=== PATIENT | female | born 1960 | race Caucasian/White ===

== ENCOUNTER 2016-11-15 10:51 | Outpatient (CLI) | payer MEDICARE, BC ==
[2016-11-15 11:59] LABS: #Basophils 0.1 thou/uL (0.0-0.2); #Eosinphils 0.3 thou/uL (0.0-0.7); #Lymphocytes 2.2 thou/uL (1.20-3.40); #Monocytes 0.7 thou/uL (0.11-0.59); #Neutrophils 7.2 thou/uL (1.40-6.50); %Basophils 1.1 % (0.0-1.0); %Eosinophils 2.8 % (0.0-10.0); %Monocytes 6.8 % (0.0-10.0); %Neutrophils 68.3 % (42.0-75.0); Hemoglobin 15.5 g/dL (12.0-16.0); Mean Corpuscular HGB CONC 33.6 g/dL (32.0-36.0); Mean Corpuscular Hemoglobin 31.8 pg (27.0-31.0); Mean Corpuscular Volume 94.7 fl (81.0-99.0); Mean Platelet Volume 5.8 fL (7.4-10.4); Platelet Count 263 thou/uL (130-400); RBC Distribution Width 13.8 % (11.5-14.5); Red Blood Cell (RBC) Count 4.86 mill/uL (4.20-5.40); White Blood Cell (WBC) Count 10.5 thou/uL (4.8-10.8)
[2016-11-15 12:11] LABS: ALT (SGPT) 52 U/L (0-55); AST (SGOT) 27 U/L (5-34); Albumin 4.5 g/dL (3.5-5.0); Alkaline Phosphatase 64 U/L (40-150); Anion Gap 16 mmol/L (10-20); BUN (Urea Nitrogen) 9 mg/dL (9.8-20.1); Bilirubin, Total 0.4 mg/dL (0.2-1.2); Calc. Creatinine Clearance 0 mL/min (70-130); Calcium 9.7 mg/dL (7.8-10.44); Carbon Dioxide 26 mmol/L (22-29); Cardiac Risk 4.6 (Less than 4.5); Chloride 104 mmol/L (98-107); Cholesterol 173 mg/dL (< 200 Desired); Estimated GFR-MDRD 88; Globulin 2.6 g/dL (2.4-3.5); Glucose 113 mg/dL (70-105); HDL Cholesterol 38 mg/dL (>60 Neg Risk); LDL Cholesterol, Calculated 94 mg/dL; Potassium 4.3 mmol/L (3.5-5.1); Protein, Total 7.1 g/dL (6.0-8.3); Sodium 142 mmol/L (136-145); Triglycerides 203 mg/dL (Less than 150)
[2016-11-15 17:53] LABS: Creatinine, Urine 89.31 mg/dL (47-110); Microalbumin Urine Less than 1.0 mg/dL (0.5-50.0); Microalbumin/Creat Ratio 11.2 mg/g (Less than 30)
== END 2016-11-15 10:52 | disposition home or self-care (01) ==
LOC: HPCALD 10:51
PROVIDERS: ATTEND Family Medicine
DX: E78.5 Hyperlipidemia, unspecified (principal); I10 Essential (primary) hypertension; E11.9 Type 2 diabetes mellitus without complications; E03.9 Hypothyroidism, unspecified
CPT/HCPCS: 36415; 80053; 80061; 82043; 84443; 85025

== ENCOUNTER 2017-02-28 10:38 | Outpatient (CLI) | payer MEDICARE, BC ==
[2017-02-28 12:22] LABS: MONO NEGATIVE CONTROL ZONE White (Negative) (White); MONO POSITIVE CONTROL Pink Line (Positive) (PINK/RED); Mononucleosis NEGATIVE (NEGATIVE)
== END 2017-02-28 10:39 | disposition home or self-care (01) ==
LOC: HPCALD 10:38
PROVIDERS: ATTEND Family Medicine
DX: Z20.828 Contact with and (suspected) exposure to other viral communicable diseases (principal)
CPT/HCPCS: 36415; 86308

== ENCOUNTER 2017-04-30 11:26 | Outpatient (CLI) | payer MEDICARE, BC ==
[2017-04-30 11:56] LABS: #Basophils 0.1 thou/uL (0.0-0.2); #Eosinphils 0.2 thou/uL (0.0-0.7); #Lymphocytes 2.1 thou/uL (1.20-3.40); #Monocytes 0.5 thou/uL (0.11-0.59); #Neutrophils 7.2 thou/uL (1.40-6.50); %Basophils 1.3 % (0.0-1.0); %Lymphocytes 20.9 % (21.0-51.0); %Monocytes 5.2 % (0.0-10.0); %Neutrophils 70.6 % (42.0-75.0); Hemoglobin 15.6 g/dL (12.0-16.0); Mean Corpuscular HGB CONC 32.2 g/dL (32.0-36.0); Mean Corpuscular Hemoglobin 30.7 pg (27.0-31.0); Mean Corpuscular Volume 95.3 fl (81.0-99.0); Mean Platelet Volume 5.5 fL (7.4-10.4); Platelet Count 292 thou/uL (130-400); RBC Distribution Width 13.2 % (11.5-14.5); Red Blood Cell (RBC) Count 5.09 mill/uL (4.20-5.40); White Blood Cell (WBC) Count 10.2 thou/uL (4.8-10.8)
== END 2017-04-30 11:27 | disposition home or self-care (01) ==
LOC: HPCALD 11:26
PROVIDERS: ATTEND Family Medicine
DX: K92.1 Melena (principal)
CPT/HCPCS: 36415; 85025

== ENCOUNTER 2017-11-20 07:48 | Outpatient (CLI) | payer MEDICARE, BC ==
--- NOTE | 2017-11-20 21:33 | CT ---
CT ABDOMEN AND PELVIS WITH CONTRAST: 11/20/17 Spiral ACT of the abdomen and pelvis was performed for evaluation of right upper quadrant pain. Freddy rison is made with a prior CT dated 06/26/16. Both oral and IV contrast were used. Axial slices were a cquired, then coronal and sagittal reconstructions were clone. The lung bases are clear. There is diffuse fatty infiltrate of the liver, but the organ is not really enlarged. No space occupying disease was seen in the liver, spleen, or pancreas. No stones were seen in the gallbladder. The adrenal glands appear normal. The right kidney appears normal. There is a 2. 5 cm cyst in the upper pole of the left kidney not a new finding. The kidney otherwise appears normal . The aorta shows no aneurysm. There is mild arteriosclerotic change near the bifurcation. The bowel is nondistended. There are no inflammatory changes around bowel. No free air or free fluid was seen. CT of the pelvis shows no pelvic masses, fluid collections, or inflammatory changes. There does appea r to be a fat filled right inguinal hernia which is probably of no consequence. IMPRESSION: Fatty infiltration of the liver. Appearance of the abdomen and pelvis seems little different than the 2016 scan. POS: HOME
== END 2017-11-20 07:49 | disposition home or self-care (01) ==
LOC: BURCT 07:48
PROVIDERS: ATTEND Family Medicine
DX: R10.11 Right upper quadrant pain (principal); K76.0 Fatty (change of) liver, not elsewhere classified
CPT/HCPCS: 74177

== ENCOUNTER 2018-02-21 17:31 | Inpatient (IN) | payer MEDICARE, BC ==
[2018-02-21] MEDS ORDERED: Magnesium Sulfate 2 GM/100 ML BAG ONE (17:43)
[2018-02-21] MEDS ORDERED: methylPREDNISolone Sod Succ/PF 125 MG/2 ML VIAL ONE (17:43)
[2018-02-21 17:56] LABS: #Lymphocytes 1.7 thou/uL (1.20-3.40); #Monocytes 0.4 thou/uL (0.11-0.59); #Neutrophils 9.2 thou/uL (1.40-6.50); %Basophils 0.4 % (0.0-1.0); %Eosinophils 0.2 % (0.0-10.0); %Lymphocytes 14.6 % (21.0-51.0); %Monocytes 3.4 % (0.0-10.0); %Neutrophils 81.5 % (42.0-75.0); Hemoglobin 14.6 g/dL (12.0-16.0); Mean Corpuscular HGB CONC 33.4 g/dL (32.0-36.0); Mean Corpuscular Hemoglobin 28.8 pg (27.0-31.0); Mean Corpuscular Volume 86.1 fL (78.0-98.0); Mean Platelet Volume 5.4 fL (7.4-10.4); Platelet Count 300 thou/uL (130-400); RBC Distribution Width 13.2 % (11.5-14.5); Red Blood Cell (RBC) Count 5.08 mill/uL (4.20-5.40); White Blood Cell (WBC) Count 11.2 thou/uL (4.8-10.8)
[2018-02-21] MEDS ORDERED: Albuterol Sulfate 1.25 MG/3 ML NEB ONE (18:13)
[2018-02-21] MEDS ORDERED: cefTRIAXone\\ROCEPHIN 2 GM VIAL ONE (18:13)
[2018-02-21 18:16] LABS: ALT (SGPT) 34 U/L (8-55); AST (SGOT) 14 U/L (5-34); Albumin 4.5 g/dL (3.5-5.0); Alkaline Phosphatase 58 U/L (40-150); Anion Gap 20 mmol/L (10-20); BUN (Urea Nitrogen) 22 mg/dL (9.8-20.1); Bilirubin, Total 0.3 mg/dL (0.2-1.2); Calc. Creatinine Clearance 0 mL/min (70-130); Calcium 10.2 mg/dL (7.8-10.44); Carbon Dioxide 27 mmol/L (22-29); Chloride 102 mmol/L (98-107); Estimated GFR-MDRD 64; Globulin 3.1 g/dL (2.4-3.5); Glucose 267 mg/dL (70-105); Potassium 4.5 mmol/L (3.5-5.1); Protein, Total 7.6 g/dL (6.0-8.3); Sodium 144 mmol/L (136-145)
[2018-02-21 18:18] LABS: CKMB 1.6 ng/mL (0-6.6); Troponin I Less than 0.010 ng/mL (< 0.028)
--- NOTE | 2018-02-21 18:32 | RAD ---
PORTABLE CHEST: 02/21/18 HISTORY: Dyspnea. Lungs are clear. Heart and mediastinum unremarkable. Vascular markings normal. IMPRESSION: No acute process. POS: [facility]
[2018-02-21 19:52] VITALS: BMI 36.9
[2018-02-21] MEDS ORDERED: Ondansetron HCl/PF 4 MG/2 ML Vial SLOW IVP PRN (20:31)
[2018-02-21] MEDS ORDERED: HYDROcodone/Acetaminophen 5/325 mg Tablet PO PRN (20:31)
[2018-02-21] MEDS ORDERED: Ondansetron ODT 4 MG TAB PO PRN (20:31)
[2018-02-21] MEDS ORDERED: Acetaminophen 325 MG TAB PO PRN (20:31)
[2018-02-21] MEDS ORDERED: ALPRAZolam 0.5 MG TAB PO PRN (21:46)
[2018-02-21] MEDS: methylPREDNISolone Sod Succ/PF 125 MG/2 ML VIAL IVP SCH (23:26)
[2018-02-21] MEDS: Sodium Chloride 0.9% 1,000 ML IV SCH (23:42)
[2018-02-22] MEDS ORDERED: metFORMIN XR 500 MG TAB PO SCH ×2 (01:45→17:00)
[2018-02-22] MEDS ORDERED: Bisoprolol Fumarate 5 MG TAB PO SCH (09:00)
[2018-02-22] MEDS ORDERED: MAGNESIUM 250 MG PO SCH (09:00)
[2018-02-22] MEDS ORDERED: Spiriva 18 MCG CAP (Box of 5 Caps) INH SCH (09:00)
[2018-02-22] MEDS: Fluticasone Propionate Nasal Spray 16 gm Bottle NASAL SCH (09:19)
[2018-02-22] MEDS: Pioglitazone HCl 15 MG TAB PO SCH (09:26)
[2018-02-22] MEDS: guaiFENesin ER 600 MG TAB PO SCH ×2 (09:26→21:07)
[2018-02-22] MEDS: Clopidogrel Bisulfate 75 MG TAB PO SCH (09:28)
[2018-02-22] MEDS: Multivit, Therapeutic 1 TAB PO SCH (09:28)
[2018-02-22] MEDS: Potassium Chloride 10 MEQ TAB PO SCH (09:30)
[2018-02-22] MEDS: Furosemide 40 MG TAB PO SCH (09:30)
[2018-02-22] MEDS: LEVOMILNACIPRAN HCL 40 MG PO SCH (09:39)
[2018-02-22] MEDS: methylPREDNISolone Sod Succ/PF 125 MG/2 ML VIAL IVP SCH ×3 (09:43→21:03)
[2018-02-22] MEDS: Mometasone/Formoterol 60 PUFF AER INH SCH ×2 (09:56→21:04)
[2018-02-22] MEDS ORDERED: Dextrose 50% Abboject 50 ML SYRINGE SLOW IVP PRN (10:12)
[2018-02-22] MEDS ORDERED: Dextrose 5% in Water 1,000 ML IV PRN (10:12)
[2018-02-22] MEDS: HumaLOG 300 UNITS/3 ML VIAL SC PRN ×3 (13:32→21:12)
[2018-02-22] MEDS: Benzonatate 100 MG CAP PO PRN (15:00)
[2018-02-22] MEDS: Sodium Chloride 0.9% 1,000 ML IV SCH (16:56)
[2018-02-22] MEDS ORDERED: Albuterol Sulfate 2.5 mg/3 ml Neb NEB PRN (20:47)
[2018-02-22] MEDS: Atorvastatin Calcium 40 MG TAB PO SCH (21:07)
[2018-02-22] MEDS: MAGNESIUM OXIDE 250 MG PO SCH (21:09)
--- NOTE | 2018-02-23 01:01 | HP ---
CHIEF COMPLAINT: Shortness of breath. HISTORY OF PRESENT ILLNESS: Ms. Ma is a 58-year-old female with a past medical histor y of COPD, tobacco abuse, and obstructive sleep apnea, who presented to the emergency room for worsen ing wheezing, shortness of breath and cough. The patient was seen in the ambulatory setting by sc, h er PCP on 02/18/2018 and complained of approximately 4 days of cough productive of green sputum, sore throat, head congestion, tightness in the throat and shortness of breath. She reported compliance w ith her CPAP therapy. She was diagnosed with a COPD exacerbation and was placed on cefdinir 300 mg b .i.d. for 7 days as well as a prednisone a 2-week taper. She was instructed to continue her CPAP wit h oxygen support at night and given precautions. The patient thought her symptoms worsening and thus presented to the emergency room yesterday evening. She has been admitted for further treatment of h er COPD exacerbation. PAST MEDICAL HISTORY: 1. Chronic pain, neck and low back. 2. Coronary artery disease, status post stent to the LAD followed by Dr. Wilson. 3. Diastolic dysfunction with trivial mitral regurgitation and LVEF of 70% per 2011 echocardiogram. 4. Carotid stenosis. 5. A 2.7-cm simple cyst left kidney. 6. Pulmonary nodule. 7. Obstructive sleep apnea/central sleep apnea (likely from medication) currently on BiPAP at night followed by Pulmonology. 8. Vitamin D deficiency. 9. Hypertension. 10. Hyperlipidemia. 11. Hypothyroidism. 12. Cardiomegaly. 13. Tobacco abuse. 14. Type 2 diabetes. 15. COPD. 16. Depression and anxiety. PAST SURGICAL HISTORY: 1. Cervical spine surgery. 2. Herniated disk surgery, uncertain level. 3. Hysterectomy. 4. Cardiac catheterization x2, status post stent to the LAD. 5. Cataract surgery bilaterally. 6. Patient received multiple epidural steroid injections to the neck and back. 7. Colonoscopy in 06/2016. FAMILY HISTORY: Father is from heart disease. Her mother is from a congenital hea rt disease. SOCIAL HISTORY: Patient currently smokes approximately half a pack per day or less. She denies alco hol or illicit drug use. MEDICATIONS: 1. Nasacort 1 puff in each nostril daily. 2. Fetzima 40 mg p.o. daily. 3. Mucinex 600 mg ER one p.o. q.12 hours. 4. Aspirin 81 mg p.o. daily. 5. Melatonin 10 mg p.o. at bedtime. 6. B-complex vitamin 1 p.o. daily. 7. Magnesium 400 mg p.o. daily. 8. Vitamin D3 5000 units p.o. daily. 9. Symbicort 160/4.5 two puffs b.i.d. 10. DuoNeb q.i.d. p.r.n. 11. Proventil HFA 2 puffs q.4 hours p.r.n. for wheezing. 12. Cyclobenzaprine 10 mg p.o. t.i.d. p.r.n. 13. Trulicity 1.5/0.5 mL subcu once a week. 14. Metformin ER 500 mg 1 p.o. daily. 15. Bisoprolol fumarate 10 mg half p.o. daily. 16. Farxiga 5 mg 1 p.o. daily. 17. Pioglitazone 15 mg 1 p.o. daily. 18. Atacand 32 mg 1 p.o. daily. 19. Lipitor 40 mg one p.o. daily. 20. Potassium chloride ER 10 mEq p.o. daily. 21. Spiriva 18 mcg 1 p.o. q.a.m. 22. Omeprazole 40 mg one p.o. daily. 23. Alprazolam 0.5 mg half once daily as needed for anxiety. 24. Plavix 75 mg p.o. daily. 25. Stadol nasal 10 mg per mL 1 spray each nostril every 3-4 hours as needed for headache, alternati ng nostrils. 26. Furosemide 40 mg p.o. daily. ALLERGIES: Midodrine, Imitrex, and high doses of metformin causes diarrhea and stomach cramps. The patient has received her Pneumovax in 04/2014, her PCV 13 in 02/2015 and is up-to-date on her flu vaccine through the past season. REVIEW OF SYSTEMS: General: The patient denies fever, chills. Positive fatigue and malaise. HEENT : Positive sore throat. No vision changes. Positive nasal congestion. No rhinorrhea. No ear pain . Cardiovascular: Denies chest pain, palpitations, orthopnea, PND. Respiratory: Positive cough, w heezing, sputum production, shortness of breath. Denies hemoptysis. Gastrointestinal: The patient denies nausea, vomiting, diarrhea, constipation, melena, hematochezia, abdominal pain. Genitourinary : The patient denies dysuria, frequency, urgency, gross hematuria. Lymphatic: The patient with int ermittent lower extremity edema, but not above her baseline. Hematologic: The patient has had easy bruising since she takes both aspirin and Plavix after her recent stent. Psychiatric: Patient with significant anxiety and depression is well treated. PHYSICAL EXAMINATION: VITAL SIGNS: Temperature 97.9, pulse 100, respirations 22, O2 sat 92% on room air, blood pressure 17 1/80. GENERAL: A well-developed, obese female, in no acute distress, sitting on the side of the bed, speaking in complete sentences. HEENT: Normocephalic, atraumatic. Pupils equal, round, and reactive to light and accommodation. Ex traocular muscles intact. Nares are patent without discharge. Tongue protrudes in the midline. NECK: Supple, without lymphadenopathy, thyromegaly, JVD, or bruit. HEART: Regular rate and rhythm with normal S1, S2. No murmurs, clicks, rubs, or gallops. LUNGS: With expiratory wheezing in all lung caban, most pronounced at the bases. No crackles. No increased work of breathing. ABDOMEN: Positive bowel sounds in all four quadrants. Soft, nontender, nondistended, no masses, gua rding, or rebound tenderness. EXTREMITIES: No cyanosis, clubbing, or edema. PSYCHIATRIC: Slightly anxious appearing, speaking in complete sentences, oriented x4, normal affect. LABORATORY: White count of 11.2 with 81.5% neutrophils and 14.6% lymphocytes, hemoglobin 14.6, hemat ocrit 43.7, platelets 300,000. Sodium 144, potassium 4.5, chloride 102, bicarb 27, BUN 22, creatinin e 0.9, glucose 267, lactic acid 2.4 and repeat is 3.0, uric acid 4.9, calcium 10.2, total bilirubin 0 .3, AST 14, ALT 34, alkaline phosphatase 58, CK-MB 1.6, troponin I less than 0.010, BNP 24.2, albumin 4.5. IMAGING: Chest x-ray with the lungs clear. Heart and mediastinum unremarkable. Vascular markings n ormal. No acute process. ASSESSMENT AND PLAN: 1. Acute exacerbation of chronic obstructive pulmonary disease with hypoxia, without hypercapnia. T he patient will be admitted and started on IV Solu-Medrol. She has been placed on Levaquin, we will continue that. She will be given O2 p.r.n. to keep sats around 92%, continue DuoNeb q.i.d. and Symbi robinson and Spiriva. Pants Cutter smoking cessation. 2. Coronary artery disease, status post recent stent placement. The patient will be continued on he r aspirin, Plavix, beta eliecer, statin, angiotensin-receptor eliecer. 3. Elevated lactic acid level. We will repeat another lactic acid level in a.m. The patient is non septic appearing. 4. Diastolic dysfunction. Patient has been adequately hydrated overnight and appears euvolemic at t his time. She is able to drink fluids. Therefore, we will saline lock her IV. Repeat lab in the a. m. along with a chest x-ray. We will continue her home dose of Lasix. 5. Depression/anxiety. The patient will be continued on her home regimen and alprazolam p.r.n . 6. Hypertension. We will monitor while hospitalized and continue her current regimen. 7. Obstructive sleep apnea/central sleep apnea. The patient has had her medication list adjusted ov er the past few years. She will continue her BiPAP at night. 8. Type 2 diabetes. The patient will be continued on her home regimen with Accu-Cheks before meals and at bedtime with lispro correction mild and bedtime algorithm for hyperglycemia. 9. Prophylaxis. Patient will be continued on her home dose of Protonix and Sequential compression d evices will be placed. 10. FULL CODE status.
[2018-02-23 05:30] LABS: #Lymphocytes 1.6 thou/uL (1.20-3.40); #Monocytes 0.7 thou/uL (0.11-0.59); #Neutrophils 16.4 thou/uL (1.40-6.50); %Basophils 0.3 % (0.0-1.0); %Eosinophils 0.1 % (0.0-10.0); %Lymphocytes 8.7 % (21.0-51.0); %Monocytes 3.6 % (0.0-10.0); %Neutrophils 87.4 % (42.0-75.0); Hemoglobin 13.8 g/dL (12.0-16.0); Mean Corpuscular HGB CONC 34.5 g/dL (32.0-36.0); Mean Corpuscular Hemoglobin 29.5 pg (27.0-31.0); Mean Corpuscular Volume 85.7 fL (78.0-98.0); Mean Platelet Volume 5.4 fL (7.4-10.4); Platelet Count 304 thou/uL (130-400); Red Blood Cell (RBC) Count 4.66 mill/uL (4.20-5.40); White Blood Cell (WBC) Count 18.8 thou/uL (4.8-10.8)
[2018-02-23 05:40] LABS: Anion Gap 17 mmol/L (10-20); BUN (Urea Nitrogen) 26 mg/dL (9.8-20.1); Calc. Creatinine Clearance 139 mL/min (70-130); Calcium 9.3 mg/dL (7.8-10.44); Carbon Dioxide 26 mmol/L (22-29); Chloride 101 mmol/L (98-107); Estimated GFR-MDRD 77; Glucose 245 mg/dL (70-105); Potassium 4.2 mmol/L (3.5-5.1); Sodium 140 mmol/L (136-145)
[2018-02-23] MEDS: HumaLOG 300 UNITS/3 ML VIAL SC PRN ×4 (08:16→21:47)
[2018-02-23] MEDS: methylPREDNISolone Sod Succ/PF 125 MG/2 ML VIAL IVP SCH ×2 (08:18→14:57)
--- NOTE | 2018-02-23 08:20 | RAD ---
CHEST 1 VIEW: COMPARISON: 02/21/18. FINDINGS: Normal cardiac silhouette. Atherosclerosis of the aorta. Pulmonary vessels are normal. Costophreni c angles are clear. No consolidation or mass. No pneumothorax or osseous abnormalities. IMPRESSION: No acute cardiopulmonary process. POS: [facility]
[2018-02-23] MEDS: Pioglitazone HCl 15 MG TAB PO SCH (08:23)
[2018-02-23] MEDS: Potassium Chloride 10 MEQ TAB PO SCH (08:23)
[2018-02-23] MEDS: Clopidogrel Bisulfate 75 MG TAB PO SCH (08:25)
[2018-02-23] MEDS: guaiFENesin ER 600 MG TAB PO SCH ×2 (08:27→21:46)
[2018-02-23] MEDS: Multivit, Therapeutic 1 TAB PO SCH (08:27)
[2018-02-23] MEDS: Bisoprolol Fumarate 5 MG TAB PO SCH (08:28)
[2018-02-23] MEDS: Furosemide 40 MG TAB PO SCH (08:28)
[2018-02-23] MEDS: Fluticasone Propionate Nasal Spray 16 gm Bottle NASAL SCH (10:05)
[2018-02-23] MEDS: Mometasone/Formoterol 60 PUFF AER INH SCH ×2 (11:30→21:50)
[2018-02-23] MEDS: LEVOMILNACIPRAN HCL 40 MG PO SCH (11:32)
[2018-02-23] MEDS: Atorvastatin Calcium 40 MG TAB PO SCH (21:47)
[2018-02-23] MEDS: MAGNESIUM OXIDE 250 MG PO SCH (21:50)
[2018-02-24 05:40] LABS: #Basophils 0.1 thou/uL (0.0-0.2); #Lymphocytes 1.8 thou/uL (1.20-3.40); #Monocytes 0.9 thou/uL (0.11-0.59); #Neutrophils 14.9 thou/uL (1.40-6.50); %Basophils 0.4 % (0.0-1.0); %Lymphocytes 10.4 % (21.0-51.0); %Monocytes 5.2 % (0.0-10.0); Hemoglobin 13.9 g/dL (12.0-16.0); Mean Corpuscular HGB CONC 34.2 g/dL (32.0-36.0); Mean Corpuscular Hemoglobin 29.3 pg (27.0-31.0); Mean Corpuscular Volume 85.6 fL (78.0-98.0); Mean Platelet Volume 5.1 fL (7.4-10.4); Platelet Count 290 thou/uL (130-400); RBC Distribution Width 12.7 % (11.5-14.5); Red Blood Cell (RBC) Count 4.74 mill/uL (4.20-5.40); White Blood Cell (WBC) Count 17.7 thou/uL (4.8-10.8)
[2018-02-24 05:44] LABS: Lactic Acid 2.3 mmol/L (0.5-2.2)
[2018-02-24 05:48] LABS: ALT (SGPT) 57 U/L (8-55); AST (SGOT) 47 U/L (5-34); Albumin 3.9 g/dL (3.5-5.0); Alkaline Phosphatase 53 U/L (40-150); Anion Gap 17 mmol/L (10-20); BUN (Urea Nitrogen) 25 mg/dL (9.8-20.1); Bilirubin, Total 0.5 mg/dL (0.2-1.2); Calc. Creatinine Clearance 143 mL/min (70-130); Calcium 9.3 mg/dL (7.8-10.44); Carbon Dioxide 28 mmol/L (22-29); Chloride 99 mmol/L (98-107); Estimated GFR-MDRD 79; Globulin 2.6 g/dL (2.4-3.5); Glucose 195 mg/dL (70-105); Protein, Total 6.5 g/dL (6.0-8.3); Sodium 140 mmol/L (136-145)
[2018-02-24 08:15] VITALS: BP 152/76; TEMP 97.9
[2018-02-24] MEDS: Multivit, Therapeutic 1 TAB PO SCH (09:00)
[2018-02-24] MEDS: Pioglitazone HCl 15 MG TAB PO SCH (09:01)
[2018-02-24] MEDS: Potassium Chloride 10 MEQ TAB PO SCH (09:02)
[2018-02-24] MEDS: Furosemide 40 MG TAB PO SCH (09:03)
[2018-02-24] MEDS: guaiFENesin ER 600 MG TAB PO SCH (09:05)
[2018-02-24] MEDS: Clopidogrel Bisulfate 75 MG TAB PO SCH (09:05)
[2018-02-24] MEDS: Bisoprolol Fumarate 5 MG TAB PO SCH (09:05)
[2018-02-24] MEDS: Mometasone/Formoterol 60 PUFF AER INH SCH (09:06)
[2018-02-24] MEDS: Fluticasone Propionate Nasal Spray 16 gm Bottle NASAL SCH (09:07)
[2018-02-24] MEDS: LEVOMILNACIPRAN HCL 40 MG PO SCH (09:09)
[2018-02-24] MEDS: Benzonatate 100 MG CAP PO PRN (09:11)
[2018-02-24] MEDS: HumaLOG 300 UNITS/3 ML VIAL SC PRN (09:19)
--- NOTE | 2018-02-24 14:40 | DIS ---
DATE OF ADMISSION: 02/21/2018 DATE OF DISCHARGE: 02/24/2018 ADMISSION DIAGNOSES: Chronic obstructive pulmonary disease exacerbation, leukocytosis. SECONDARY DIAGNOSES: Hypertension, type 2 diabetes mellitus, coronary artery disease, obstructive sleep apnea, depression, anxiety. PROCEDURES: Chest x-ray on 02/21/2018 showed no acute process. Chest x-ray on 02/23/2018 showed no acute cardiopulmonary process. HOSPITAL COURSE: A 58-year-old female, long time smoker with COPD, presented to [facility] Emergency Department with worsening upper respiratory symptoms including dyspnea, cough, and wheezing. Prior to this, she was seen in the clinical setting by her PCP, Dr. Rogers who prescribed her cefdinir and prednisone taper. The patient resumed her usual medications and took her prescribed medications; however, did not improve. She was subsequently admitted for COPD exacerbation. She was started on IV Levaquin empirically and IV Solu-Medrol. Chest x-ray readings are as above. She initially had a slight leukocytosis with left shift; leukocytosis increased secondary to steroid therapy. Initial lactic acid was 2.4, which peaked at 3.0 thereafter and has declined to 2.3 as of today. Secondary to this, her metformin was held during her stay. The patient's sputum respiratory culture revealed few normal respiratory camryn present and her blood cultures show no growth to date at 48 hours. She has remained afebrile throughout her stay. Her wheezing and cough has steadily improved during her admission and she feels that she is now amenable to discharge to her home setting. The patient states that she is a patient of Dr. Ruiz's, Pulmonology, and plans to follow up with him after discharge. DISPOSITION: The patient will discharge to her home setting and may follow up with Dr. Rogers and Dr. Ruiz as planned. DISCHARGE MEDICATIONS: She will complete her outpatient prescriptions of cefdinir and prednisone taper. She will continue her usual home medications, which include Nasacort 1 puff in each nostril daily, Fetzima 40 mg p.o. daily, Mucinex 600 mg ER p.o. b.i.d., aspirin 81 mg p.o. daily, melatonin 10 mg p.o. at bedtime, B complex vitamin 1 p.o. daily, magnesium 400 mg p.o. daily, vitamin D3 5000 units p.o. daily, Symbicort 160/4.5 two puffs b.i.d., DuoNeb q.i.d. p.r.n., Proventil 2 puffs q.4 hours p.r.n., cyclobenzaprine 10 mg p.o. t.i.d. p.r.n., Trulicity 1.5/0.5 mL subcutaneously once a week, metformin ER 500 mg p.o. daily, bisoprolol 10 mg 1/2 tab p.o. daily, Farxiga 5 mg p.o. daily , pioglitazone 15 mg p.o. daily, Atacand 32 mg p.o. daily, Lipitor 40 mg p.o. daily, potassium chloride extended release 10 mEq p.o. daily, Spiriva 18 mcg p.o. daily, omeprazole 40 mg p.o. daily, alprazolam 0.5 mg 1/2 tab once daily as needed, Plavix 75 mg p.o. daily, Stadol nasal 10 mg per mL 1 spray each nostril every 3-4 hours as needed for headache and Lasix 40 mg p.o. daily. MTDD
[2018-02-28] MEDS ORDERED: DULAGLUTIDE 1.5 MG SC SCH (09:00)
== END 2018-02-24 13:26 | disposition home or self-care (01) | DRG 192 ==
LOC: BURERS 17:31 → BURMED 18:45
PROVIDERS: ADMIT Family Medicine; ATTEND Family Medicine
DX: J44.1 Chronic obstructive pulmonary disease with (acute) exacerbation (principal); R09.02 Hypoxemia; G47.33 Obstructive sleep apnea (adult) (pediatric); I10 Essential (primary) hypertension; E78.5 Hyperlipidemia, unspecified; E03.9 Hypothyroidism, unspecified; E11.9 Type 2 diabetes mellitus without complications; F32.9 Major depressive disorder, single episode, unspecified; F41.9 Anxiety disorder, unspecified; F17.210 Nicotine dependence, cigarettes, uncomplicated; I25.10 Atherosclerotic heart disease of native coronary artery without angina pectoris; I51.9 Heart disease, unspecified; G89.29 Other chronic pain; M54.2 Cervicalgia; M54.5 Low back pain; E66.9 Obesity, unspecified; Z68.37 Body mass index [BMI] 37.0-37.9, adult; Z88.8 Allergy status to other drugs, medicaments and biological substances; Z79.84 Long term (current) use of oral hypoglycemic drugs; Z79.02 Long term (current) use of antithrombotics/antiplatelets; Z79.82 Long term (current) use of aspirin; Z79.899 Other long term (current) drug therapy; Z95.5 Presence of coronary angioplasty implant and graft
CPT/HCPCS: 36415; 36416; 71045; 71046; 80048; 80053; 82553; 83605; 83880; 84484; 84550; 85025; 87040; 87070; 87205; 94640; 94664; 94760; 96365; 96367; 96375; A4216; J0696; J1956; J2930; J3475; J7620

== ENCOUNTER 2018-05-20 14:08 | Outpatient (CLI) | payer MEDICARE, BC ==
[2018-05-20 17:43] LABS: Anion Gap 13 mmol/L (10-20); BUN (Urea Nitrogen) 21 mg/dL (9.8-20.1); Calc. Creatinine Clearance 0 mL/min (70-130); Calcium 9.9 mg/dL (7.8-10.44); Carbon Dioxide 30 mmol/L (22-29); Chloride 106 mmol/L (98-107); Estimated GFR-MDRD 82; Glucose 123 mg/dL (70-105); Magnesium 1.9 mg/dL (1.6-2.6); Potassium 4.6 mmol/L (3.5-5.1); Sodium 144 mmol/L (136-145)
--- NOTE | 2018-05-20 20:27 | RAD ---
CERVICAL SPINE FIVE VIEWS: 05/20/2018 COMPARISON: Prior films were not available for comparison. The patient had prior anterior cervical fusion at the C5, C6, and C7 levels. FINDINGS: The postoperative appearance is normal. No fracture or dislocation is seen. There is loss of the no rmal cervical lordosis. The disk spaces from C2 through C5 appear normal. The C1 to dens distance i s normal, and the soft tissues are normal in thickness. There are severe changes of facet arthritis at most cervical levels, especially at about C3 and below . Oblique views show some mild foraminal narrowing on the right, at C4-C5, and moderate to severe na rrowing on the left, at C2-C3, C3-C4, C5-C6, and C6-C7. IMPRESSION: Moderately severe degenerative changes, as noted above. POS: HOME
--- NOTE | 2018-05-20 20:30 | RAD ---
THORACIC SPINE THREE VIEWS: 05/20/2018 FINDINGS: No fracture, dislocation, or disk space narrowing is seen. Osteophytes are seen anteriorly at severa l levels, most prominently in the mid to lower thoracic region. The paravertebral soft tissues appea r normal. IMPRESSION: Mild degenerative change. POS: HOME
--- NOTE | 2018-05-20 20:31 | RAD ---
LUMBAR SPINE: 05/20/2018 TECHNIQUE: Five views are provided, including flexion and extension views. FINDINGS: No fracture, dislocation, or acute bony change is seen. There is very slight disk space narrowing at L5-S1. Facet arthritis is suggested in the lower lumbar levels. There is no abnormal motion of the spine with flexion and extension. The SI joints appear normal. The aorta and proximal iliac arteri es are calcified. IMPRESSION: Mild to moderate degenerative change, but no acute finding. POS: HOME
== END 2018-05-20 14:09 | disposition home or self-care (01) ==
LOC: BURRAD 14:08
PROVIDERS: ATTEND Family Medicine
DX: M51.36 Other intervertebral disc degeneration, lumbar region (principal); M50.30 Other cervical disc degeneration, unspecified cervical region; R25.2 Cramp and spasm; M47.896 Other spondylosis, lumbar region; M47.894 Other spondylosis, thoracic region; M47.892 Other spondylosis, cervical region
CPT/HCPCS: 36415; 72050; 72072; 72120; 80048; 83735

== ENCOUNTER 2018-08-05 15:50 | Outpatient (CLI) | payer MEDICARE, BC ==
--- NOTE | 2018-08-05 19:17 | RAD ---
CHEST TWO VIEWS: 08/05/2018 FINDINGS: While there is no major infiltrate, comparison with the 04/08/2018 study shows an area in the right l ower lobe, medially, near the heart and diaphragm, that is hazier than it was before. I cannot exclu de an early infiltrate in this right cardiophrenic angle. The lungs are otherwise clear. There are no effusions. The heart size is stable. There are no congestive findings. The trachea is midline. IMPRESSION: Equivocal minimal infiltrate in the right base, medially. CODE T POS: HOME
== END 2018-08-05 15:51 | disposition home or self-care (01) ==
LOC: BURRAD 15:50
PROVIDERS: ATTEND Family Medicine
DX: J44.1 Chronic obstructive pulmonary disease with (acute) exacerbation (principal); R91.8 Other nonspecific abnormal finding of lung field
CPT/HCPCS: 71046

== ENCOUNTER 2020-06-15 16:25 | Emergency (ER) | payer MEDICARE, BC ==
[2020-06-15] MEDS ORDERED: Magnesium 2 GM/50 ML BAG (IN WATER) ONE (16:49)
[2020-06-15] MEDS ORDERED: Metoclopramide HCl 10 MG/2 ML VIAL ONE (16:54)
[2020-06-15] MEDS ORDERED: Ketorolac Tromethamine 30 MG/ML VIAL ONE (17:28)
[2020-06-15] MEDS ORDERED: diphenhydrAMINE 50 MG/ML VIAL ONE (17:28)
== END 2020-06-15 18:28 | disposition home or self-care (01) ==
LOC: BURERS 16:25
DX: G43.009 Migraine without aura, not intractable, without status migrainosus (principal); I25.10 Atherosclerotic heart disease of native coronary artery without angina pectoris; E11.9 Type 2 diabetes mellitus without complications; E78.5 Hyperlipidemia, unspecified; I10 Essential (primary) hypertension; J44.9 Chronic obstructive pulmonary disease, unspecified; F32.9 Major depressive disorder, single episode, unspecified; F41.9 Anxiety disorder, unspecified; F17.210 Nicotine dependence, cigarettes, uncomplicated; Z79.899 Other long term (current) drug therapy; Z79.84 Long term (current) use of oral hypoglycemic drugs; Z79.82 Long term (current) use of aspirin
CPT/HCPCS: 96365; 96367; 96375; J1200; J1885; J2765; J3475

== ENCOUNTER 2021-01-09 22:20 | Observation (INO) | payer MEDICARE, BC ==
[2021-01-09 22:43] LABS: #Basophils 0.1 thou/uL (0.0-0.2); #Eosinphils 0.1 thou/uL (0.0-0.7); #Lymphocytes 1.2 thou/uL (1.20-3.40); #Neutrophils 6.8 thou/uL (1.40-6.50); %Basophils 1.1 % (0.0-1.0); %Eosinophils 0.7 % (0.0-10.0); %Lymphocytes 13.2 % (21.0-51.0); %Monocytes 10.6 % (0.0-10.0); %Neutrophils 74.4 % (42.0-75.0); Hemoglobin 15.9 g/dL (12.0-16.0); Mean Corpuscular HGB CONC 33.2 g/dL (32.0-36.0); Mean Corpuscular Hemoglobin 31.2 pg (27.0-31.0); Mean Platelet Volume 5.8 fL (7.4-10.4); Platelet Count 246 thou/uL (130-400); RBC Distribution Width 13.3 % (11.5-14.5); White Blood Cell (WBC) Count 9.1 thou/uL (4.8-10.8)
[2021-01-09 23:00] LABS: ALT (SGPT) 28 U/L (8-55); AST (SGOT) 24 U/L (5-34); Albumin 4.4 g/dL (3.5-5.0); Alkaline Phosphatase 46 U/L (40-110); Anion Gap 16 mmol/L (10-20); BUN (Urea Nitrogen) 13 mg/dL (9.8-20.1); Bilirubin, Total 0.4 mg/dL (0.2-1.2); Calc. Creatinine Clearance 0 mL/min (70-130); Calcium 9.7 mg/dL (7.8-10.44); Carbon Dioxide 28 mmol/L (22-29); Chloride 98 mmol/L (98-107); Globulin 2.9 g/dL (2.4-3.5); Glucose 116 mg/dL (70-105); Potassium 4.2 mmol/L (3.5-5.1); Protein, Total 7.3 g/dL (6.0-8.3); Sodium 138 mmol/L (136-145)
[2021-01-09] MEDS ORDERED: Albuterol Sulfate 2.5 mg/0.5 ml Neb ONE (23:01)
[2021-01-09] MEDS ORDERED: methylPREDNISolone Sod Succ/PF 125 MG/2 ML VIAL ONE (23:02)
[2021-01-09] MEDS ORDERED: Doxycycline 100 MG CAP ONE (23:03)
[2021-01-09] MEDS ORDERED: Albuterol Sulfate 1.25 MG/3 ML NEB ONE ×2 (23:07→23:10)
[2021-01-09] MEDS ORDERED: Ipratropium Bromide 2.5 ml Neb ONE (23:11)
[2021-01-10 01:11] LABS: SARS-CoV-2 NAA Rapid Test Not Detected (NotDetected)
[2021-01-10] MEDS ORDERED: Albuterol Sulfate 2.5 mg/3 ml Neb NEB PRN (02:13)
[2021-01-10] MEDS ORDERED: Ondansetron PF 4 MG/2 ML Vial IVP PRN (02:15)
[2021-01-10] MEDS ORDERED: Ondansetron ODT 4 MG TAB SL PRN (02:15)
[2021-01-10 03:42] VITALS: BMI 36.5
[2021-01-10] MEDS ORDERED: Melatonin 3 MG TAB PO PRN (08:22)
[2021-01-10] MEDS ORDERED: Dextrose 5% in Water 1,000 ML IV PRN (08:46)
[2021-01-10] MEDS ORDERED: Dextrose 50% Abboject 50 ML SYRINGE SLOW IVP PRN (08:46)
[2021-01-10] MEDS ORDERED: HumaLOG 300 UNITS/3 ML VIAL SC PRN ×2 (08:46)
[2021-01-10] MEDS ORDERED: Azithromycin 250 MG TAB PO SCH (09:00)
[2021-01-10] MEDS ORDERED: Venlafaxine HCl XR 75 MG CAP PO SCH (09:00)
[2021-01-10] MEDS ORDERED: Pioglitazone HCl 15 MG TAB PO SCH (09:00)
[2021-01-10] MEDS ORDERED: cefTRIAXone\\ROCEPHIN 1 GM in Sodium Chloride 0.9% 100 ML IVPB SCH (09:00)
[2021-01-10] MEDS ORDERED: Multivit, Therapeutic 1 TAB PO SCH (09:00)
[2021-01-10] MEDS ORDERED: Hydrochlorothiazide 25 MG TAB PO SCH (09:00)
[2021-01-10] MEDS ORDERED: Cholecalciferol 1,000 UNITS (25 MCG) TAB PO SCH (09:00)
[2021-01-10] MEDS ORDERED: Empagliflozin 10 MG TAB PO SCH (09:00)
[2021-01-10] MEDS ORDERED: Aspirin Chewable 81 MG TAB PO SCH (09:00)
[2021-01-10] MEDS ORDERED: Bisoprolol Fumarate 5 MG TAB PO SCH (09:00)
[2021-01-10] MEDS: tiZANidine HCl 4 MG TAB PO SCH ×2 (09:50→14:27)
[2021-01-10] MEDS ORDERED: methylPREDNISolone Sod Succ/PF 125 MG/2 ML VIAL IVP SCH (14:00)
[2021-01-10] MEDS ORDERED: metFORMIN 500 MG TAB PO SCH (17:00)
[2021-01-10] MEDS ORDERED: Icosapent Ethyl [Vascepa] 1 GM Capsule PO SCH (17:00)
[2021-01-10 17:35] VITALS: BP 133/60; TEMP 98.1
[2021-01-10] MEDS ORDERED: Losartan Potassium 50 MG TAB PO SCH (21:00)
[2021-01-10] MEDS ORDERED: Atorvastatin Calcium 40 MG TAB PO SCH (21:00)
[2021-01-11] MEDS ORDERED: Potassium Chloride 10 MEQ TAB PO SCH (08:00)
[2021-01-16] MEDS ORDERED: Semaglutide [Ozempic] 1 MG/0.75 ML Pen.Injctr SC SCH (09:00)
== END 2021-01-10 18:05 | disposition home or self-care (01) ==
LOC: BURERS 22:20 → BURMED 01-10 00:44
PROVIDERS: ADMIT Family Medicine; ATTEND Family Medicine
DX: J44.1 Chronic obstructive pulmonary disease with (acute) exacerbation (principal); E11.65 Type 2 diabetes mellitus with hyperglycemia; I10 Essential (primary) hypertension; I25.10 Atherosclerotic heart disease of native coronary artery without angina pectoris; G47.33 Obstructive sleep apnea (adult) (pediatric); E78.5 Hyperlipidemia, unspecified; E03.9 Hypothyroidism, unspecified; F17.210 Nicotine dependence, cigarettes, uncomplicated; G89.29 Other chronic pain; M54.9 Dorsalgia, unspecified; M54.2 Cervicalgia; Z79.82 Long term (current) use of aspirin; Z79.84 Long term (current) use of oral hypoglycemic drugs; Z79.899 Other long term (current) drug therapy; Z88.8 Allergy status to other drugs, medicaments and biological substances; Z95.5 Presence of coronary angioplasty implant and graft; Z20.822 Contact with and (suspected) exposure to COVID-19
CPT/HCPCS: 0240U; 36416; 71045; 80053; 83880; 84484; 85025; 87804; 96374; 96375; 96376; G0378; J0696; J1815; J2930; J3490; J7611; J7620

== ENCOUNTER 2021-08-23 11:12 | Emergency (ER) | payer MEDICARE, BC ==
[2021-08-23] MEDS ORDERED: AMOXicillin 250 MG CAP ONE (11:40)
[2021-08-23] MEDS ORDERED: Bacitracin 1 PK ONE (12:27)
== END 2021-08-23 12:36 | disposition home or self-care (01) ==
LOC: BURERS 11:12
DX: S63.272A Dislocation of unspecified interphalangeal joint of right middle finger, initial encounter (principal); S51.832A Puncture wound without foreign body of left forearm, initial encounter; I10 Essential (primary) hypertension; I25.10 Atherosclerotic heart disease of native coronary artery without angina pectoris; E11.9 Type 2 diabetes mellitus without complications; E78.5 Hyperlipidemia, unspecified; J44.9 Chronic obstructive pulmonary disease, unspecified; G43.909 Migraine, unspecified, not intractable, without status migrainosus; F17.210 Nicotine dependence, cigarettes, uncomplicated; W54.0XXA Bitten by dog, initial encounter

== ENCOUNTER 2021-08-30 15:51 | Outpatient (CLI) | payer MEDICARE, BC | END 2021-08-30 15:52 | disposition home or self-care (01) | LOC: BURRAD 15:51 | PROVIDERS: ATTEND Family Medicine | DX: S51.852A Open bite of left forearm, initial encounter (principal); W54.0XXD Bitten by dog, subsequent encounter ==

== ENCOUNTER 2022-01-25 10:10 | Outpatient (CLI) | payer MEDICARE, BC | END 2022-01-25 10:11 | disposition home or self-care (01) | LOC: BURRAD 10:10 | PROVIDERS: ATTEND Family Medicine | DX: J44.9 Chronic obstructive pulmonary disease, unspecified (principal) | CPT/HCPCS: 71046 ==

== ENCOUNTER 2022-02-09 10:01 | Outpatient (CLI) | payer MEDICARE, BC | END 2022-02-09 10:02 | disposition home or self-care (01) | LOC: BURRAD 10:01 | PROVIDERS: ATTEND Family Medicine | DX: J44.1 Chronic obstructive pulmonary disease with (acute) exacerbation (principal) | CPT/HCPCS: 71046 ==

== ENCOUNTER 2022-06-29 12:59 | Outpatient (CLI) | payer MEDICARE, BC ==
[2022-06-29 13:43] LABS: AST (SGOT) 15 U/L (5-34); Albumin 3.8 g/dL (3.4-4.8); Anion Gap 16 mmol/L (10-20); BUN (Urea Nitrogen) 14 mg/dL (9.8-20.1); Bilirubin, Total 0.5 mg/dL (0.2-1.2); Calc. Creatinine Clearance 0 mL/min (70-130); Calcium 8.6 mg/dL (7.8-10.44); Carbon Dioxide 26 mmol/L (23-31); Chloride 105 mmol/L (98-107); Estimated GFR 103; Globulin 2.2 g/dL (2.4-3.5); Glucose 107 mg/dL (80-115); Sodium 143 mmol/L (136-145)
[2022-06-29 13:57] LABS: Anisocytosis SLIGHT = 6-15 cells (100X) (0-5/hpf); Hemoglobin 5.5 g/dL (12.0-16.0); MDiff Complete? YES; Mean Corpuscular Hemoglobin 32.6 pg (27.0-31.0); Mean Corpuscular Volume 98.9 fl (78.0-98.0); Platelet Count Less than 7 10x3/uL (130-400); Platelet Morphology Comment Appears Decreased; RBC Distribution Width 17.7 % (11.5-14.5); White Blood Cell (WBC) Count 0.4 10x3/uL (4.8-10.8)
[2022-06-29 14:07] LABS: ALT (SGPT) 28 U/L (8-55); Alkaline Phosphatase 52 U/L (40-110)
== END 2022-06-29 13:00 | disposition home or self-care (01) ==
LOC: BURLAB 12:59
PROVIDERS: ATTEND Internal Medicine
DX: C92.A1 Acute myeloid leukemia with multilineage dysplasia, in remission (principal); D61.818 Other pancytopenia; L08.9 Local infection of the skin and subcutaneous tissue, unspecified
CPT/HCPCS: 80053; 85025

== ENCOUNTER 2022-07-10 09:09 | Outpatient (CLI) | payer MEDICARE, BC ==
[2022-07-10 09:29] LABS: ALT (SGPT) 25 U/L (8-55); AST (SGOT) 17 U/L (5-34); Albumin 3.9 g/dL (3.4-4.8); Alkaline Phosphatase 58 U/L (40-110); Anion Gap 15 mmol/L (10-20); BUN (Urea Nitrogen) 15 mg/dL (9.8-20.1); Bilirubin, Total 0.2 mg/dL (0.2-1.2); Calc. Creatinine Clearance 0 mL/min (70-130); Calcium 8.9 mg/dL (7.8-10.44); Carbon Dioxide 26 mmol/L (23-31); Chloride 106 mmol/L (98-107); Estimated GFR 101; Globulin 2.2 g/dL (2.4-3.5); Glucose 169 mg/dL (80-115); Potassium 4.3 mmol/L (3.5-5.1); Protein, Total 6.1 g/dL (5.8-8.1); Sodium 143 mmol/L (136-145)
[2022-07-10 09:55] LABS: Hemoglobin 7.6 g/dL (12.0-16.0); Mean Corpuscular HGB CONC 33.3 g/dL (32.0-36.0); Mean Corpuscular Hemoglobin 33.5 pg (27.0-31.0); Mean Platelet Volume 6.1 fL (7.4-10.4); Platelet Count 95 10x3/uL (130-400); RBC Distribution Width 17.2 % (11.5-14.5); Red Blood Cell (RBC) Count 2.28 mill/uL (4.20-5.40); White Blood Cell (WBC) Count 4.7 10x3/uL (4.8-10.8)
[2022-07-10 09:58] LABS: Anisocytosis SLIGHT = 6-15 cells (100X) (0-5/hpf); Band 6 % (5-11); Lymphocytes 29 % (21-51); MDiff Complete? YES; Macrocytosis SLIGHT = 6-15 cells (100X) (0-5/hpf); Metamyelocyte 1 % (0-0); Monocytes 22 % (0-10); Neutrophil 40 % (42-75); Nucleated RBC 4 % (0); Platelet Morphology Comment Appears Decreased; Reactive Lymphocytes 2 % (0-10)
== END 2022-07-10 09:10 | disposition home or self-care (01) ==
LOC: BURLAB 09:09
PROVIDERS: ATTEND Internal Medicine
DX: C92.A1 Acute myeloid leukemia with multilineage dysplasia, in remission (principal); D61.818 Other pancytopenia
CPT/HCPCS: 80053; 85025

== ENCOUNTER 2022-08-08 06:35 | Emergency (ER) | payer MEDICARE, BC ==
[2022-08-08] MEDS ORDERED: methylPREDNISolone Sod Succ/PF 125 MG/2 ML VIAL ONE (07:26)
[2022-08-08 07:29] LABS: Hemoglobin 11.8 g/dL (12.0-16.0); Mean Corpuscular HGB CONC 31.5 g/dL (32.0-36.0); Mean Corpuscular Hemoglobin 34.2 pg (27.0-31.0); Mean Platelet Volume 7.1 fL (7.4-10.4); Platelet Count 131 10x3/uL (130-400); Red Blood Cell (RBC) Count 3.45 mill/uL (4.20-5.40); White Blood Cell (WBC) Count 4.5 10x3/uL (4.8-10.8)
[2022-08-08 07:39] LABS: Lipase 7 U/L (8-78); Magnesium 1.9 mg/dL (1.6-2.6)
[2022-08-08 07:47] LABS: ALT (SGPT) 26 U/L (8-55); AST (SGOT) 24 U/L (5-34); Albumin 4.2 g/dL (3.4-4.8); Alkaline Phosphatase 48 U/L (40-110); Anion Gap 13 mmol/L (10-20); BUN (Urea Nitrogen) 11 mg/dL (9.8-20.1); Bilirubin, Total 0.4 mg/dL (0.2-1.2); Calc. Creatinine Clearance 0 mL/min (70-130); Calcium 9.2 mg/dL (7.8-10.44); Carbon Dioxide 28 mmol/L (23-31); Chloride 100 mmol/L (98-107); Estimated GFR 99; Globulin 2.7 g/dL (2.4-3.5); Glucose 134 mg/dL (80-115); Protein, Total 6.9 g/dL (5.8-8.1); Sodium 137 mmol/L (136-145)
[2022-08-08 07:59] LABS: Anisocytosis MARKED = >30 cells (100X) (0-5/hpf); Band 2 % (5-11); Eosinophils 3 % (0-10); Lymphocytes 13 % (21-51); MDiff Complete? YES; Monocytes 15 % (0-10); Neutrophil 63 % (42-75); Platelet Morphology Comment Appears Adequate; Reactive Lymphocytes 3 % (0-10)
[2022-08-08 08:10] LABS: Bilirubin Negative (Negative); Blood, Urine Negative (Negative); Clarity Clear (Clear); Glucose, Urine (Dipstick) 500 mg/dL (Negative); Ketone, Urine 80 mg/dL (Negative); Leukocyte Negative (Negative); Nitrite Negative (Negative); Protein, Urine (Dipstick) Negative (Neg-Trace); Urobilinogen 0.2 mg/dL (Less than 2)
[2022-08-08] MEDS ORDERED: Cefepime 2 GM VIAL ONE (08:11)
[2022-08-08 08:12] LABS: Specific Gravity, Urine 1.028 (1.002-1.036)
[2022-08-08] MEDS ORDERED: Sodium Chloride 0.9% 100 ML ONE (08:16)
[2022-08-08 08:23] LABS: SARS-CoV-2 NAA Rapid Test Not Detected (NotDetected)
== END 2022-08-08 10:24 | disposition home or self-care (01) ==
LOC: BURERS 06:35
DX: J06.9 Acute upper respiratory infection, unspecified (principal); C92.00 Acute myeloblastic leukemia, not having achieved remission; Z20.822 Contact with and (suspected) exposure to COVID-19; E11.9 Type 2 diabetes mellitus without complications; I10 Essential (primary) hypertension; E78.5 Hyperlipidemia, unspecified; G43.909 Migraine, unspecified, not intractable, without status migrainosus; J44.9 Chronic obstructive pulmonary disease, unspecified; F17.210 Nicotine dependence, cigarettes, uncomplicated; Z79.84 Long term (current) use of oral hypoglycemic drugs; Z79.899 Other long term (current) drug therapy
CPT/HCPCS: 36415; 71045; 80053; 81003; 83605; 83690; 83735; 83880; 84484; 85025; 87040; 96365; 96374; J0692; J2930; J3490; J7620